=== PATIENT | male | born 1990 | race Two or more races ===

== ENCOUNTER 2021-04-24 12:56 | Emergency (ER) | payer MEDICAID ==
[~2021-04-24] VITALS: Ht 170.2 cm; Wt 88.5 kg
[2021-04-24 14:06] VITALS: BP 124/76
[2021-04-24 14:15] LABS: Basophils # (auto) 0 10 ^3/uL (0-0.2); Basophils % (auto) 0.5 % (0.0-2.0); Eosinophils # (auto) 0 10 ^3/uL (0-0.8); Eosinophils % (auto) 0.1 % (0.0-7.0); Hematocrit 42.8 % (41.0-53.0); Hemoglobin 14.5 g/dL (13.5-17.5); Lymphocytes # (auto) 3.2 10 ^3/uL (0.4-5.4); Lymphocytes % (auto) 38.6 % (10.0-50.0); Mean Corpuscular Hemoglobin 29.3 pg (28.0-32.0); Mean Corpuscular Hgb Conc. 33.9 g/dL (32.0-36.0); Mean Corpuscular Volume 86.4 fL (80.0-100.0); Monocytes # (auto) 0.4 10 ^3/uL (0-1.3); Monocytes % (auto) 4.5 % (0.0-12.0); Neutrophils # (auto) 4.7 10 ^3/uL (1.6-8.6); Neutrophils % (auto) 56.3 % (37.0-80.0); Nucleated Red Blood Cells % 0.1 %; Red Blood Cells 4.95 10^6/uL (4.5-5.90); Red Cell Distribution Width 12.9 % (11.8-14.3); White Blood Cell 8.4 10^3/uL (4.4-10.8)
[2021-04-24 14:26] LABS: BUN/Creatinine Ratio 12.2; Potassium 3.9 mmol/L (3.5-5.1)
[2021-04-24] MEDS ORDERED: METH750T22 PO (15:02)
[2021-04-24] MEDS ORDERED: IBUP800T27 PO (15:02)
== END 2021-04-24 15:07 | disposition home or self-care (01) ==
LOC: ER 12:56
DX: S86.912A Strain of unspecified muscle(s) and tendon(s) at lower leg level, left leg, initial encounter (principal); S86.911A Strain of unspecified muscle(s) and tendon(s) at lower leg level, right leg, initial encounter; E11.9 Type 2 diabetes mellitus without complications; F17.210 Nicotine dependence, cigarettes, uncomplicated; F12.10 Cannabis abuse, uncomplicated; X58.XXXA Exposure to other specified factors, initial encounter; Y93.89 Activity, other specified; Y92.89 Other specified places as the place of occurrence of the external cause; Y99.8 Other external cause status
CPT/HCPCS: 36415; 80048; 82550; 85025

== ENCOUNTER 2022-06-03 06:44 | Emergency (ER) | payer MEDICAID ==
[~2022-06-03] VITALS: Ht 170.2 cm; Wt 84.5 kg
[~2022-06-03 06:44] MED LIST: IBUP800T27 PO; METH750T22 PO
[2022-06-03] MEDS ORDERED: DexAMETHasone SOD PHOS 10MG/1ML VIAL INJ IM ONE (09:30)
[2022-06-03 13:03] VITALS: BP 118/67
[2022-06-03] MEDS ORDERED: IBUP800T26 PO (13:46)
== END 2022-06-03 13:54 | disposition home or self-care (01) ==
LOC: ER 06:44
DX: J02.0 Streptococcal pharyngitis (principal); E11.9 Type 2 diabetes mellitus without complications; F17.210 Nicotine dependence, cigarettes, uncomplicated; F12.10 Cannabis abuse, uncomplicated; Z20.822 Contact with and (suspected) exposure to COVID-19
CPT/HCPCS: 36415; 87070; 87426; 87880; 96372; 99283; J1100

== ENCOUNTER 2023-09-28 09:50 | Emergency (ER) | payer MEDICAID ==
[~2023-09-28] VITALS: Ht 170.2 cm; Wt 77.2 kg
[~2023-09-28 09:50] MED LIST changes: +IBUP-1455 PO; +IBUP-1456 PO; -IBUP800T27 PO; +METH-1182 PO; -METH750T22 PO
[2023-09-28 10:24] VITALS: PULSE 90; RESP 20; O2SAT 96
[2023-09-28 10:43] VITALS: O2SAT 95
[2023-09-28 11:45] LABS: Basophils # (auto) 0.1 10 ^3/uL (0-0.2); Basophils % (auto) 0.5 % (0.0-2.0); Eosinophils # (auto) 0 10 ^3/uL (0-0.8); Eosinophils % (auto) 0.1 % (0.0-7.0); Hematocrit 39.1 % (41.0-53.0); Hemoglobin 13.3 g/dL (13.5-17.5); Lymphocytes # (auto) 3.3 10 ^3/uL (0.4-5.4); Lymphocytes % (auto) 33.8 % (10.0-50.0); Mean Corpuscular Hemoglobin 29.5 pg (28.0-32.0); Mean Corpuscular Hgb Conc. 34.1 g/dL (32.0-36.0); Mean Corpuscular Volume 86.4 fL (80.0-100.0); Monocytes # (auto) 0.5 10 ^3/uL (0-1.3); Monocytes % (auto) 5.1 % (0.0-12.0); Neutrophils # (auto) 5.9 10 ^3/uL (1.6-8.6); Neutrophils % (auto) 60.5 % (37.0-80.0); Red Blood Cells 4.53 10^6/uL (4.5-5.90); Red Cell Distribution Width 12.7 % (11.8-14.3); White Blood Cell 9.7 10^3/uL (4.4-10.8)
[2023-09-28 11:55] LABS: Chloride 102 mmol/L (98-107); Potassium 3.9 mmol/L (3.5-5.1); Sodium 135 mmol/L (136-145)
[2023-09-28 11:56] LABS: Anion Gap 8 (5-15); Calcium 9.6 mg/dL (8.7-10.4); Carbon Dioxide 25 mmol/L (20-30)
[2023-09-28 12:01] LABS: BUN/Creatinine Ratio 12.4 (10.0-20.0); Blood Urea Nitrogen 15 mg/dL (9-23); Glucose 329 mg/dL (74-106)
[2023-09-28 12:57] VITALS: BP 99/56; PULSE 100; RESP 16
== END 2023-09-28 13:26 | disposition left against medical advice (07) ==
LOC: ER 09:50
DX: E11.65 Type 2 diabetes mellitus with hyperglycemia (principal); R42 Dizziness and giddiness; F17.210 Nicotine dependence, cigarettes, uncomplicated; F12.10 Cannabis abuse, uncomplicated
CPT/HCPCS: 36415; 80048; 82962; 85025

== ENCOUNTER 2023-11-14 16:47 | Emergency (ER) | payer MEDICAID ==
[~2023-11-14] VITALS: Ht 170.2 cm; Wt 79.7 kg
[2023-11-14 17:02] VITALS: BP 120/81; PULSE 87; RESP 17; O2SAT 99
[2023-11-14 17:39] LABS: Basophils # (auto) 0 10 ^3/uL (0-0.2); Basophils % (auto) 0.3 % (0.0-2.0); Eosinophils # (auto) 0 10 ^3/uL (0-0.8); Eosinophils % (auto) 0.3 % (0.0-7.0); Hematocrit 42.7 % (41.0-53.0); Hemoglobin 14.4 g/dL (13.5-17.5); Lymphocytes # (auto) 2.8 10 ^3/uL (0.4-5.4); Lymphocytes % (auto) 32.7 % (10.0-50.0); Mean Corpuscular Hemoglobin 30.2 pg (28.0-32.0); Mean Corpuscular Hgb Conc. 33.8 g/dL (32.0-36.0); Mean Corpuscular Volume 89.2 fL (80.0-100.0); Monocytes # (auto) 0.5 10 ^3/uL (0-1.3); Monocytes % (auto) 5.6 % (0.0-12.0); Neutrophils # (auto) 5.1 10 ^3/uL (1.6-8.6); Neutrophils % (auto) 61.1 % (37.0-80.0); Platelet Count (auto) 346 10^3/uL (140-450); Red Blood Cells 4.78 10^6/uL (4.5-5.90); Red Cell Distribution Width 13.4 % (11.8-14.3); White Blood Cell 8.4 10^3/uL (4.4-10.8)
[2023-11-14 17:49] LABS: Alanine Aminotransferase 36 U/L (7-40); Alkaline Phosphatase 99 U/L (46-116); Anion Gap 8 (5-15); Aspartate Aminotransferase 32 U/L (13-40); BUN/Creatinine Ratio 11.1 (10.0-20.0); Blood Urea Nitrogen 10 mg/dL (9-23); Carbon Dioxide 27 mmol/L (20-30); Chloride 106 mmol/L (98-107); Glucose 87 mg/dL (74-106); Lipase 25 U/L (12-53); Potassium 3.5 mmol/L (3.5-5.1); Sodium 141 mmol/L (136-145)
[2023-11-14 17:50] LABS: Bilirubin, Total 0.6 mg/dL (0.2-1.0); Total Protein 7.6 g/dL (5.7-8.2)
[2023-11-14] MEDS ORDERED: PHENSUP38 PR (19:46)
[2023-11-14 20:16] LABS: Urine Bacteria None Seen /hpf (None Seen); Urine WBC None Seen /hpf (0 - 3)
[2023-11-14 20:20] LABS: Urine Blood Negative /uL (Negative); Urine Clarity Clear (Clear); Urine Color Light-Yellow (Yellow); Urine Protein, UAD Negative (Negative); Urine Specific Gravity 1.012 (1.001-1.035); Urine Urobilinogen Normal (Negative)
== END 2023-11-14 22:37 | disposition home or self-care (01) ==
LOC: ER 16:47
DX: K64.9 Unspecified hemorrhoids (principal); F20.9 Schizophrenia, unspecified; E11.9 Type 2 diabetes mellitus without complications; F17.210 Nicotine dependence, cigarettes, uncomplicated; F15.90 Other stimulant use, unspecified, uncomplicated; Z79.899 Other long term (current) drug therapy
CPT/HCPCS: 36415; 71045; 80053; 81001; 83605; 83690; 83880; 84484; 85025

== ENCOUNTER 2024-03-21 12:38 | Inpatient (IN) | payer MEDICAID ==
[~2024-03-21] VITALS: Ht 170.2 cm; Wt 75.1 kg
[~2024-03-21 12:38] MED LIST changes: +PHENSUP38 PR
--- NOTE | 2024-03-21 12:45 | ED.PDOC ---
History of Present Illness HPI Comments 33 y/o M with PMHX of schizophrenia and DM, brought in by ambulance presents to the ED with CC of hyperglycemia. Per EMS, patient was brought in from boarding care due to non-compliance with medications. EMS states, that patient has been experiencing episodes of hyperglycemia with associated symptoms of dysuria and dry mouth. In route to ED, patient's blood sugar on the glucometer read at 496. Patient is slightly disoriented and no other history is obtainable at this time. Time Seen by MD: 12:40 Primary Care Provider: KATY Reviewed Notes: Nurses Notes, Delivery Assistant Notes, Medications, Allergies Allergies: Coded Allergies: NO KNOWN ALLERGIES (Unverified , 06/03/22) Home Meds Active Scripts Phenylephrine-Shark Liver Oil- (Hemorrhoidal Suppositorie 0.25-3-85.5 %) 1 Sup Sup, 1 SUP [place] BIDP PRN, #20 SUPP Prov:SHREYAS BUCHANAN PAC 11/14/23 Ibuprofen Micronized (Ibuprofen) 800 Mg Tab, 800 MG PO Q8HP PRN, #30 TAB Prov:SHREYAS BUCHANAN PAC 06/03/22 Methocarbamol (Methocarbamol) 750 Mg Tab, 750 MG PO BID, #20 TAB Prov:FREDRICK PORRAS PA 04/24/21 Ibuprofen (Ibuprofen) 800 Mg Tab, 800 MG PO Q8HP PRN, #30 TAB Prov:FREDRICK PORRAS PA 04/24/21 Information Source: Patient, Emergency Med Personnel Mode of Arrival: EMS Severity: Mild Timing: Days Duration: Since onset Prehospital treatment: 12 Lead EKG, Accucheck Past Medical History PAST MEDICAL HISTORY: DM, Schizophrenia Surgical History: Denies all surgeries Family History Family History: Reviewed,noncontributory to illness Social History Smoker: Cigarettes Alcohol: Occasionally Drugs: Marijuana Lives In: Home Constitutional: denies: chills, diaphoresis, fatigue, fever, malaise, sweats, weakness, others EENTM: reports: others (DRY MOUTH); denies: blurred vision, double vision, ear bleeding, ear discharge, ear drainage, ear pain, ear ringing, eye pain, eye redness, hearing loss, mouth pain, mouth swelling, nasal discharge, nose bleeding, nose congestion, nose pain, photophobia, tearing, throat pain, throat swelling, voice changes Respiratory: denies: cough, hemoptysis, orthopnea, SOB at rest, shortness of breath, SOB with excertion, stridor, wheezing, others Cardiovascular: denies: chest pain, dizzy spells, diaphoresis, Dyspnea on exertion, edema, irregular heart beat, left arm pain, lightheadedness, palpitations, PND, syncope, others Gastrointestinal: denies: abdomen distended, abdominal pain, blood streaked bowels, constipated, diarrhea, dysphagia, difficulty swallowing, hematemesis, melena, nausea, poor appetite, poor fluid intake, rectal bleeding, rectal pain, vomiting, others Genitourinary: reports: dysuria; denies: burning, flank pain, frequency, hematuria, incontinence, penile discharge, penile sore, pain, testicle pain, testicle swelling, urgency, others Neurological: denies: dizziness, fainting, headache, left sided numbness, left sided weakness, numbness, paresthesia, pre-existing deficit, right sided numbness, right sided weakness, seizure, speech problems, tingling, tremors, weakness, others Musculoskeletal: denies: back pain, gout, joint pain, joint swelling, muscle pain, muscle stiffness, neck pain, others Integumetry: denies: bruises, change in color, change in hair/nails, dryness, laceration, lesions, lumps, rash, wounds, others Allergic/Immunocompromised: denies: Difficulty Healing, Frequent Infections, Hives, Itching, others Hematologic/Lymphatic: denies: anemia, blood clots, easy bleeding, easy bruising, swollen glands, others Endocrine: denies: excessive hunger, excessive sweating, excessive thirst, excessive urination, flushing, intolerance to cold, intolerance to heat, unexplained weight gain, unexplained weight loss, others Psychiatric: denies: anxiety, bipolar disorder, depression, hopeless, panic disorder, schizophrenia, sleepless, suicidal, others All Other Systems: Reviewed and Negative Physical Exam General Appearance: Moderate Distress HEENT: Normal ENT Inspection, Pharynx Normal, TMs Normal Neck: Full Range of Motion, Non-Tender, Normal, Normal Inspection Respiratory: Chest Non-Tender, Lungs Clear, No Accessory Muscle Use, No Respiratory Distress, Normal Breath Sounds Cardiovascular: No Edema, No JVD, No Murmur, No Gallop, Normal Peripheral Pulses, Regular Rate/Rhythm Breast Exam: Deferred Gastrointestinal: No Organomegaly, Non Tender, No Pulsatile Mass, Normal Bowel Sounds, Soft Genitalia: Deferred Pelvic: Deferred Rectal: Deferred Extremities: No calf tenderness, Normal capillary refill, Normal inspection, Normal range of motion, Non-tender, No pedal edema Musculoskeletal : Apperance: Normal Neurologic: Alert, lithographic proofer II-XII nml as Tested, Motor Weakness, Normal Affect, Normal Mood, No Sensory Deficits Cerebellar Function: Normal Reflexes: Normal Skin: Dry, Normal Color, Warm Lymphatic: No Adenopathy Was a procedure done? Was a procedure done?: No Differential Dx Considerations may include: HYPERGLYCEMIA X-Ray, Labs, Meds, VS Vital Signs Date Time Temp Pulse Resp B/P (MAP) Pulse Ox O2 Delivery O2 Flow Rate FiO2 03/21/24 16:08 119 22 140/92 (108) 97 03/21/24 16:00 121 03/21/24 13:23 110 18 141/95 (110) 98 03/21/24 13:23 110 18 98 Room Air* 0 21 03/21/24 12:45 97.9 106 23 134/92 (106) 98 Lab Test 03/21/24 13:54 03/21/24 13:17 03/21/24 13:15 03/21/24 12:56 Range/Units Blood Gas Specimen Type Arterial Blood Gas Sample Site Right radial Blood Gas Patient Temperature 37.0 Arterial Blood Date Drawn [id number] Arterial Blood pH 7.143 *L 7.350-7.450 Arterial Blood Partial Pressure CO2 17.0 *L 35.0-48.0 mmHg Arterial Blood Partial Pressure O2 114.6 H 83.0-108.0 mmHg Arterial Blood HCO3 5.7 L 21.0-28.0 mmol/L Arterial Blood Oxygen Saturation 96.6 94.0-98.0 % Arterial Blood Base Excess -20.8 L -2.0-3.0 mmol/L Arterial Blood Oxyhemoglobin 95.6 94.0-98.0 % Arterial Blood Carboxyhemoglobin 0.4 L 0.5-1.5 % Arterial Blood Methemoglobin 0.6 0.0-1.5 % Morris Test Yes Blood Gas Total Hemoglobin 17.50 13.5-17.5 g/dL Blood Gas Modality Room air FiO2 % 21.0 Blood Gas Critical Value Read Back Yes Blood Gas Notified Whom Md. kath schneider Blood Gas Notified Time [id number] Blood Gas Notified By Sapphire [employer] Grinder breonna sarah Urine Color Light-yellow Yellow Urine Clarity Clear Clear Urine pH 5.0 5.0-9.0 Urine Specific [place] 1.027 1.001-1.035 Urine Protein Trace H Negative Urine Ketones 4+ H Negative Urine Blood Trace H Negative /uL Urine Nitrite Negative Negative Urine Bilirubin Negative Negative Urine Urobilinogen Normal Negative mg/dL Urine Leukocyte Esterase Negative Negative /uL Urine RBC None seen 0 - 3 /hpf Urine Microscopic WBC < 1 0-3 /HPF Urine Squamous Epithelial Cells Few <5 /hpf Urine Bacteria None seen None Seen /hpf Urine Glucose 4+ H Normal mg/dL Urine Opiates Screen Neg NEGATIVE Urine Fentanyl Screen Neg NEGATIVE Urine Barbiturates Screen Neg NEGATIVE Urine Phencyclidine Screen Neg NEGATIVE Urine Amphetamines Screen Neg NEGATIVE Urine Benzodiazepines Screen Neg NEGATIVE Urine Cocaine Screen Neg NEGATIVE Urine Cannabinoids Screen Neg NEGATIVE POC Glucose 473 *H 70-106 mg/dl White Blood Count 8.1 4.4-10.8 10^3/uL Red Blood Count 5.72 4.5-5.90 10^6/uL Hemoglobin 17.1 13.5-17.5 g/dL Hematocrit 51.7 41.0-53.0 % Mean Corpuscular Volume 90.4 80.0-100.0 fL Mean Corpuscular Hemoglobin 29.9 28.0-32.0 pg Mean Corpuscular Hemoglobin Concent 33.1 32.0-36.0 g/dL Red Cell Distribution Width 13.7 11.8-14.3 % Platelet Count 318 140-450 10^3/uL Mean Platelet Volume 8.1 6.9-10.8 fL Neutrophils (%) (Auto) 82.4 H 37.0-80.0 % Lymphocytes (%) (Auto) 11.3 10.0-50.0 % Monocytes (%) (Auto) 6.0 0.0-12.0 % Eosinophils (%) (Auto) 0.0 0.0-7.0 % Basophils (%) (Auto) 0.3 0.0-2.0 % Neutrophils # (Auto) 6.7 1.6-8.6 10 ^3/uL Lymphocytes # (Auto) 0.9 0.4-5.4 10 ^3/uL Monocytes # (Auto) 0.5 0-1.3 10 ^3/uL Eosinophils # (Auto) 0 0-0.8 10 ^3/uL Basophils # (Auto) 0 0-0.2 10 ^3/uL Nucleated Red Blood Cells 0.0 % Sodium Level 126 L 136-145 mmol/L Potassium Level 6.8 *H 3.5-5.1 mmol/L Chloride Level 92 L 98-107 mmol/L Carbon Dioxide Level 12 L 20-31 mmol/L Anion Gap 22 H 5-15 Blood Urea Nitrogen 25 H 9-23 mg/dL Creatinine 1.68 H 0.700-1.30 mg/dL Glomerular Filtration Rate Calc 55 >90 mL/min BUN/Creatinine Ratio 14.9 10.0-20.0 Serum Glucose 551 *H 74-106 mg/dL Calcium Level 11.0 H 8.7-10.4 mg/dL Beta-Hydroxybutyric Acid Pending Current Medications Medications (Trade) Dose Ordered Sig/Genoveva Route Start Time Stop Time Status Last Admin Sodium Chloride 1,000 ml @ 1,000 mls/hr Q1H ONCE IV 03/21/24 12:45 03/21/24 13:44 DC 03/21/24 13:32 Sodium Chloride 1,000 ml @ 1,000 mls/hr Q1H ONCE IV 03/21/24 13:45 03/21/24 14:44 DC 03/21/24 13:45 Insulin Human Regular (InsuLIN R) 5 units ONCE ONCE IV 03/21/24 13:45 03/21/24 13:46 DC 03/21/24 14:13 The patient was given a bolus of normal saline and then another repeat 1 L The patient was given insulin 5 units IV push secondary to the Accu-Chek being 951 The patient was potassium is 6.8 The board is 92 The patient's sodium level is 126 This is indicates some severe dehydration. The CBC is within normal limits The urine tox is negative We did an ABG which shows a pH of 7.14/pCO2 of 17 The CO2 level is 12 in the anion gap is increased to 22 The patient has been started on an insulin drip after the insulin was given The patient will be admitted to the ICU Images Reviewed?: Images reviewed and evaluated by me Time of 1ST Reevaluation: 13:20 Reevaluation 1ST: Unchanged Patient Education/Counseling: Diagnosis, Treatment, Prognosis Family Education/Counseling: No Family Present Departure 1 Departure Time of Disposition: 17:08 Impression: Primary Impression: Amphetamine use Additional Impression: Diabetic ketoacidosis Qualified Codes: E13.10 - Other specified diabetes mellitus with ketoaci dosis without coma Disposition: ADMITTED INPATIENT Admit to: ICU Condition: Guarded Critical Care Note Critical Care Time?: Yes (35 min-critical care time only) Stability Stability form required: Yes Unstable for transfer: ICU, CCU, PCU, KD (Intensive VS monitoring), ED Physician Assesment (Clinical assesment) Heart Score Heart Score: Heart Score Response (Comments) Value History N/A 0 EKG N/A 0 Age N/A 0 Risk Factors N/A 0 Troponin N/A 0 Total 0 I personally scribed for ML SCHNEIDER MD ([email or web address]) on 03/21/24 at 12:45. Beverley ctronically submitted by Meeta Harper ([email or web address]). I personally scribed for ML SCHNEIDER MD ([email or web address]) on 03/21/24 at 12:52. Elect ronically submitted by Meeta Harper ([email or web address]). ML SCHNEIDER MD Mar 21, 2024 12:45
[2024-03-21 13:14] LABS: Basophils # (auto) 0 10 ^3/uL (0-0.2); Basophils % (auto) 0.3 % (0.0-2.0); Eosinophils # (auto) 0 10 ^3/uL (0-0.8); Hematocrit 51.7 % (41.0-53.0); Hemoglobin 17.1 g/dL (13.5-17.5); Lymphocytes # (auto) 0.9 10 ^3/uL (0.4-5.4); Lymphocytes % (auto) 11.3 % (10.0-50.0); Mean Corpuscular Hemoglobin 29.9 pg (28.0-32.0); Mean Corpuscular Hgb Conc. 33.1 g/dL (32.0-36.0); Mean Corpuscular Volume 90.4 fL (80.0-100.0); Monocytes # (auto) 0.5 10 ^3/uL (0-1.3); Neutrophils # (auto) 6.7 10 ^3/uL (1.6-8.6); Neutrophils % (auto) 82.4 % (37.0-80.0); Platelet Count (auto) 318 10^3/uL (140-450); Red Blood Cells 5.72 10^6/uL (4.5-5.90); Red Cell Distribution Width 13.7 % (11.8-14.3); White Blood Cell 8.1 10^3/uL (4.4-10.8)
[2024-03-21 13:21] LABS: Anion Gap 22 (5-15)
[2024-03-21 13:23] VITALS: PULSE 110; RESP 18; O2SAT 98
[2024-03-21 13:26] LABS: BUN/Creatinine Ratio 14.9 (10.0-20.0)
[2024-03-21 13:31] LABS: Urine Bacteria None Seen /hpf (None Seen)
[2024-03-21] MEDS: SODIUM CHLORIDE 0.9% 1,000 ML IV ONE ×3 (13:32→21:10)
[2024-03-21 13:37] LABS: Blood Urea Nitrogen 25 mg/dL (9-23); Carbon Dioxide 12 mmol/L (20-31); Chloride 92 mmol/L (98-107); Sodium 126 mmol/L (136-145)
[2024-03-21 13:38] LABS: Glucose 551 mg/dL (74-106); Potassium 6.8 mmol/L (3.5-5.1)
[2024-03-21] MEDS: HYDROcodone-ACET 5/325MG TAB PO ONE (13:45)
[2024-03-21 13:51] LABS: Urine Blood TRACE /uL (Negative); Urine Clarity Clear (Clear); Urine Color Light-Yellow (Yellow); Urine Protein, UAD TRACE (Negative); Urine Specific Gravity 1.027 (1.001-1.035); Urine Squamous Epithelial Cell FEW /hpf (<5); Urine Urobilinogen Normal (Negative); Urine WBC < 1 /HPF (0-3)
[2024-03-21 13:55] LABS: Amphetamine Screen, Urine Neg (NEGATIVE); Barbiturate Scree,Urine Neg (NEGATIVE); Benzodiazephine Screen, Urine Neg (NEGATIVE); Cannabinoid Screen, Urine Neg (NEGATIVE); Cocaine Screen, Urine Neg (NEGATIVE); Opiate Scree,Urine Neg (NEGATIVE); Phencyclidine Screen, Urine Neg (NEGATIVE)
[2024-03-21 14:03] LABS: Base Excess -20.8 mmol/L (-2.0-3.0)
[2024-03-21] MEDS: InsuLIN REG 1unit/0.01ml Soln (100units/ml) IV ONE (14:13)
[2024-03-21] MEDS: LIDOCAINE 2% JELLY 11ml (GLYDO) UR ONE (16:30)
[2024-03-21] MEDS ORDERED: DEXTROSE (50%) 50ML SYRG IV PRN ×2 (17:15→19:00)
[2024-03-21] MEDS: INSULIN LANTUS (GLARGINE) 1 /0.01ml (100units/ml) SC ONE (17:57)
[2024-03-21] MEDS: ACCU-CHEK COMFORT CURVE STRIP VI SCH ×2 (17:59→19:36)
[2024-03-21] MEDS: INSULIN DRIP 100 UNIT/100ML 100 ML IV SCH ×2 (17:59→19:35)
[2024-03-21] MEDS ORDERED: MORPHINE SULFATE INJ 2 MG/ml SYRG IV PRN (19:00)
[2024-03-21] MEDS ORDERED: NITROGLYCERIN 0.4 MG SL TAB SL PRN (19:00)
[2024-03-21 19:30] VITALS: PULSE 127; RESP 23; O2SAT 99
[2024-03-21 20:10] LABS: Anion Gap 22.00001 (5-15)
[2024-03-21 20:15] LABS: Blood Urea Nitrogen 22 mg/dL (9-23)
[2024-03-21 20:35] LABS: Calcium 10.5 mg/dL (8.7-10.4); Carbon Dioxide < 10 mmol/L (20-31); Chloride 96 mmol/L (98-107); Glucose 469 mg/dL (74-106); Sodium 128 mmol/L (136-145)
[2024-03-21] MEDS: SODIUM ZIRCONIUM CYCL 10 GM PAK PO ONE (21:06)
[2024-03-21] MEDS: SODIUM BICARB 8.4% 50Meq/50ml SYR Vial IV ONE (21:10)
[2024-03-21] MEDS: CALCIUM GLUC 1,000mg/50ml-NS 50 ML IV ONE (21:24)
[2024-03-21] MEDS: ALBUTEROL SULF 2.5 MG/0.5ML(0.5%) NEB SOLN NEB ONE (21:30)
[2024-03-21 21:40] LABS: Base Excess -18.7 mmol/L (-2.0-3.0)
[2024-03-22] MEDS: InsuLIN REG 1unit/0.01ml Soln (100units/ml) IV ONE (00:17)
[2024-03-22] MEDS: ONDANSETRON HCL 4 MG/2 ML VIAL IV PRN (00:18)
[2024-03-22 01:05] LABS: Chloride 102 mmol/L (98-107); Potassium 4.2 mmol/L (3.5-5.1); Sodium 137 mmol/L (136-145)
[2024-03-22 01:06] LABS: Anion Gap 24 (5-15); Calcium 9.8 mg/dL (8.7-10.4)
--- NOTE | 2024-03-22 01:09 | DVHHP2 ---
History of Present Illness Reason for Visit: Hyperglycemia History of Present Illness 33-year-old male presents for evaluation of hyperglycemia. Patient brought in from [facility] after noting his blood sugars being elevated. It was reported the patient being noncompliant with his insulin regimen. Patient is currently complaining of nausea and dry mouth. Denies chest pain or shortness for breath. No other acute complaints reported. Past Medical History Schizophrenia and diabetes mellitus Past Surgical History Denies Family History Noncontributory Smoke: <1 pack per day ALCOHOL: occassional Drugs: Marijuana Lives: Other Review of Systems Review of Systems Review of systems are currently negative otherwise addressed in HPI. Allergies: Coded Allergies: NO KNOWN ALLERGIES (Unverified , 06/03/22) Medications Current Medications Medications Dose Ordered Sig/Genoveva Route Start Time Stop Time Status Last Admin Dose Admin Insulin Glargine 15 units DAILY SC 03/22/24 10:00 Sodium Chloride 1,000 ml @ 150 mls/hr Q6H40M IV 03/22/24 01:00 Insulin Human (Reg)/Sodium Chloride 100 ml @ 0.5 mls/hr Q24H IV 03/21/24 19:00 03/21/24 19:35 6 MLS/HR Dextrose 50 ml UD PRN IV 03/21/24 19:00 Diagnostic Test (Pha) 1 strip Q90MIN 03/21/24 19:30 03/21/24 23:53 1 STRIP Ondansetron HCl 4 mg Q4HP PRN IV 03/21/24 19:00 03/22/24 00:18 4 MG Nitroglycerin 0.4 mg Q5MINP PRN SL 03/21/24 19:00 Morphine Sulfate 2 mg Q30M PRN IV 03/21/24 19:00 Exam Vital Signs Vital Signs Date Time Temp Pulse Resp B/P (MAP) Pulse Ox O2 Delivery O2 Flow Rate FiO2 03/22/24 00:00 99.8 127 24 147/89 (108) 98 99.8 03/21/24 21:28 Room Air* 0 21 Exam Gen: 33-year-old male in mild distress Skin: Warm, dry, normal color and texture, no rash. HEENT: Normocephalic atraumatic, mucous membranes moist and pink. Neck: Cervical and supraclavicular nodes normal without enlargement, trachea is midline, thyroid gland is normal without masses. Pulmonary: Clear to auscultation and percussion bilaterally. Cardiac: Sinus tachycardia Abdomen: Soft, nontender, nondistended, bowel sounds present all 4 quadrants, no guarding, no rigidity, no organomegaly. Extremities: No cyanosis, clubbing, no edema Neuro: Cranial nerves II through XII grossly intact, normal affect and speech, no focal motor deficits. Labs/Xrays Labs Test 03/22/24 00:33 03/21/24 23:54 03/21/24 21:23 03/21/24 19:38 Range/Units POC Glucose 366 H 70-106 mg/dl Blood Gas Specimen Type Arterial Blood Gas Sample Site Left radial Blood Gas Patient Temperature 37.0 Arterial Blood Date Drawn Arterial Blood pH 7.212 *L 7.350-7.450 Arterial Blood Partial Pressure CO2 15.7 *L 35.0-48.0 mmHg Arterial Blood Partial Pressure O2 108.4 H 83.0-108.0 mmHg Arterial Blood HCO3 6.2 L 21.0-28.0 mmol/L Arterial Blood Oxygen Saturation 97.4 94.0-98.0 % Arterial Blood Base Excess -18.7 L -2.0-3.0 mmol/L Arterial Blood Oxyhemoglobin 96.7 94.0-98.0 % Arterial Blood Carboxyhemoglobin 0.1 L 0.5-1.5 % Arterial Blood Methemoglobin 0.6 0.0-1.5 % Morris Test Yes Blood Gas Total Hemoglobin 17.50 13.5-17.5 g/dL Blood Gas Modality Room air Blood Gas Spontaneous Rate 21 FiO2 % 21.0 Blood Gas Critical Value Read Back yes Blood Gas Notified Whom huber callejas Blood Gas Notified Time [id number] Blood Gas Notified By data processing systems consultant rishabh ballard Serum Osmolality 325 H 278-298 mOsm/kg Test 03/21/24 13:17 03/21/24 12:56 Range/Units Urine Color Light-yellow Yellow Urine Clarity Clear Clear Urine pH 5.0 5.0-9.0 Urine Specific [place] 1.027 1.001-1.035 Urine Protein Trace H Negative Urine Ketones 4+ H Negative Urine Blood Trace H Negative /uL Urine Nitrite Negative Negative Urine Bilirubin Negative Negative Urine Urobilinogen Normal Negative mg/dL Urine Leukocyte Esterase Negative Negative /uL Urine RBC None seen 0 - 3 /hpf Urine Microscopic WBC < 1 0-3 /HPF Urine Squamous Epithelial Cells Few <5 /hpf Urine Bacteria None seen None Seen /hpf Urine Glucose 4+ H Normal mg/dL Urine Opiates Screen Neg NEGATIVE Urine Fentanyl Screen Neg NEGATIVE Urine Barbiturates Screen Neg NEGATIVE Urine Phencyclidine Screen Neg NEGATIVE Urine Amphetamines Screen Neg NEGATIVE Urine Benzodiazepines Screen Neg NEGATIVE Urine Cocaine Screen Neg NEGATIVE Urine Cannabinoids Screen Neg NEGATIVE White Blood Count 8.1 4.4-10.8 10^3/uL Red Blood Count 5.72 4.5-5.90 10^6/uL Hemoglobin 17.1 13.5-17.5 g/dL Hematocrit 51.7 41.0-53.0 % Mean Corpuscular Volume 90.4 80.0-100.0 fL Mean Corpuscular Hemoglobin 29.9 28.0-32.0 pg Mean Corpuscular Hemoglobin Concent 33.1 32.0-36.0 g/dL Red Cell Distribution Width 13.7 11.8-14.3 % Platelet Count 318 140-450 10^3/uL Mean Platelet Volume 8.1 6.9-10.8 fL Neutrophils (%) (Auto) 82.4 H 37.0-80.0 % Lymphocytes (%) (Auto) 11.3 10.0-50.0 % Monocytes (%) (Auto) 6.0 0.0-12.0 % Eosinophils (%) (Auto) 0.0 0.0-7.0 % Basophils (%) (Auto) 0.3 0.0-2.0 % Neutrophils # (Auto) 6.7 1.6-8.6 10 ^3/uL Lymphocytes # (Auto) 0.9 0.4-5.4 10 ^3/uL Monocytes # (Auto) 0.5 0-1.3 10 ^3/uL Eosinophils # (Auto) 0 0-0.8 10 ^3/uL Basophils # (Auto) 0 0-0.2 10 ^3/uL Nucleated Red Blood Cells 0.0 % Beta-Hydroxybutyric Acid > 4.500 H < 0.4 mmol/L Assessment/Plan Assessment/Plan Assessment Diabetic ketoacidosis Noncompliant Acute kidney injury Plan Admit the patient to ICU to the hospitalist DKA protocol Monitor kidney function Continue treatment per orders Total critical care time excluding procedures performed this 50 minutes. Plan discussed with: Patient My Orders Orders - NIC CALLEJAS Procedure Category Date Status Time Sodium Chloride 0.9% PHA 03/22/24 In Process 01:00 Insulin Drip 100 PHA 03/21/24 In Process Unit/100ml (Myxredlin 19:00 Dextrose 50% Syringe PHA 03/21/24 In Process 19:00 Glucose Blood PHA 03/21/24 In Process (Accu-Chek Comfort 19:30 Basic Metabolic Panel LAB 03/22/24 In Process 00:55 Basic Metabolic Panel LAB 03/22/24 Logged 06:55 Neurological NICK 03/21/24 In Process Assessment 18:55 Vs/Hemodynamics NICK 03/21/24 In Process 18:55 Admit ADMIT 03/21/24 Transmitted 18:55 Ondansetron Hcl PHA 03/21/24 In Process (Zofran) 19:00 Complete Blood Count LAB 03/22/24 Logged 04:00 Comprehensive LAB 03/22/24 Logged Metabolic Panel 04:00 Npo (Nothing By DIET 03/22/24 Transmitted Mouth) Diet Breakfast Condition: Critical NICK 03/21/24 In Process 18:55 Bedrest With Bathroom NICK 03/21/24 In Process Privileg 18:55 Nitroglycerin PHA 03/21/24 In Process Sublingual (Ntrostat 19:00 Morphine Sulfate PHA 03/21/24 In Process Injection 19:00 Stat Ekg For Chest NICK 03/21/24 In Process Pain 18:55 Notify Of Changes NICK 03/21/24 In Process From Base 18:55 Maintenance Specialist For NCIK 03/21/24 In Process 24 Hours 18:55 Emergency Dysrhythmia NICK 03/21/24 In Process Protocol 18:55 Rhythm Strips Once NICK 03/21/24 In Process Every Shift 18:55 Oxygen By Nasal RT 03/21/24 Transmitted Cannula 18:55 Abg W/ Co-Ox RT 03/21/24 Logged 20:54 Date of Service: Mar 21, 2024 Billing Provider: NIC CALLEJAS Common Visit Codes: [id number] CARE 30-74 MIN NIC CALLEJAS Mar 22, 2024 01:09
[2024-03-22 01:11] LABS: BUN/Creatinine Ratio 12.6 (10.0-20.0); Blood Urea Nitrogen 21 mg/dL (9-23)
[2024-03-22 01:18] LABS: Carbon Dioxide 11 mmol/L (20-31); Glucose 339 mg/dL (74-106)
[2024-03-22] MEDS: SODIUM CHLORIDE 0.9% 1,000 ML IV SCH ×2 (01:23→16:46)
[2024-03-22] MEDS: SODIUM CHLORIDE 0.9% 1,000 ML IV ONE (02:14)
[2024-03-22 07:25] LABS: Alanine Aminotransferase 31 U/L (7-40); Albumin 4.3 g/dL (3.2-4.8); Alkaline Phosphatase 94 U/L (46-116); Anion Gap 12 (5-15); Aspartate Aminotransferase 21 U/L (13-40); BUN/Creatinine Ratio 11.6 (10.0-20.0); Blood Urea Nitrogen 15 mg/dL (9-23); Chloride 106 mmol/L (98-107); Potassium 4.1 mmol/L (3.5-5.1)
[2024-03-22 07:26] LABS: Bilirubin, Total 0.5 mg/dL (0.2-1.0); Total Protein 6.8 g/dL (5.7-8.2)
[2024-03-22 07:27] LABS: Basophils # (auto) 0 10 ^3/uL (0-0.2); Basophils % (auto) 0.2 % (0.0-2.0); Carbon Dioxide 18 mmol/L (20-31); Eosinophils # (auto) 0 10 ^3/uL (0-0.8); Glucose 231 mg/dL (74-106); Hematocrit 41.9 % (41.0-53.0); Hemoglobin 14.6 g/dL (13.5-17.5); Lymphocytes # (auto) 1.8 10 ^3/uL (0.4-5.4); Lymphocytes % (auto) 17.7 % (10.0-50.0); Mean Corpuscular Hgb Conc. 34.9 g/dL (32.0-36.0); Monocytes # (auto) 0.9 10 ^3/uL (0-1.3); Monocytes % (auto) 9.4 % (0.0-12.0); Neutrophils # (auto) 7.2 10 ^3/uL (1.6-8.6); Neutrophils % (auto) 72.7 % (37.0-80.0); Platelet Count (auto) 311 10^3/uL (140-450); Red Blood Cells 4.88 10^6/uL (4.5-5.90); Red Cell Distribution Width 13.2 % (11.8-14.3); Sodium 136 mmol/L (136-145); White Blood Cell 9.9 10^3/uL (4.4-10.8)
[2024-03-22 07:30] VITALS: PULSE 96; RESP 17; O2SAT 98
[2024-03-22] MEDS ORDERED: DEXTROSE (50%) 50ML SYRG IV ONE (08:30)
[2024-03-22] MEDS ORDERED: ACCU-CHEK COMFORT CURVE STRIP VI ONE (08:30)
[2024-03-22] MEDS ORDERED: InsuLIN REG 1unit/0.01ml Soln (100units/ml) SC ONE (08:30)
[2024-03-22] MEDS ORDERED: DEXTROSE (50%) 50ML SYRG IV PRN (08:45)
[2024-03-22] MEDS: INSULIN LANTUS (GLARGINE) 1 /0.01ml (100units/ml) SC SCH (11:14)
[2024-03-22] MEDS: ACCU-CHEK COMFORT CURVE STRIP VI SCH (12:04)
[2024-03-22] MEDS: InsuLIN REG 1unit/0.01ml Soln (100units/ml) SC SCH ×2 (12:05→21:13)
[2024-03-22 13:37] LABS: Chloride 105 mmol/L (98-107); Potassium 4.3 mmol/L (3.5-5.1); Sodium 137 mmol/L (136-145)
[2024-03-22 13:38] LABS: Anion Gap 12 (5-15); Calcium 9.8 mg/dL (8.7-10.4); Carbon Dioxide 20 mmol/L (20-31)
[2024-03-22 13:43] LABS: BUN/Creatinine Ratio 12.5 (10.0-20.0); Blood Urea Nitrogen 16 mg/dL (9-23); Glucose 291 mg/dL (74-106)
--- NOTE | 2024-03-22 14:11 | DVHPN2 ---
Subjective Denies any symptoms Reviewed: Care Plan, H&P, Medications, Previous Orders Changes from previous H/P or p: No Changes General: Per HPI Objective Vitals Vital Signs Date Time Temp Pulse Resp B/P (MAP) Pulse Ox O2 Delivery O2 Flow Rate FiO2 03/22/24 11:00 86 16 119/75 (90) 98 03/22/24 10:00 98.0 98.0 03/22/24 07:30 Room Air* 0 21 Intake/Output Intake and Output 03/22/24 07:00 Intake Total 2959 ml Output Total 1000 ml Balance 1959 ml Intake IV Total 2959 ml Output Urine Total 1000 ml General Appearance: Alert, Oriented X3, Cooperative, No acute distress HEENT: Atraumatic, PERRLA Lungs: Clear to auscultation, Normal air movement Cardiovascular: Normal S1, Normal S2 Musculoskeletal: Normal sensory function, Normal motor function Neuro: Normal gait, Normal speech Psych/Mental Status: Mental status NL, Mood NL Medications Current Medications Medications Dose Ordered Sig/Genoveva Route Start Time Stop Time Status Last Admin Dose Admin Insulin Glargine 15 units DAILY SC 03/22/24 10:00 03/22/24 11:14 15 UNITS Sodium Chloride 1,000 ml @ 150 mls/hr Q6H40M IV 03/22/24 01:00 03/22/24 09:00 150 MLS/HR Ondansetron HCl 4 mg Q4HP PRN IV 03/21/24 19:00 03/22/24 00:18 4 MG Nitroglycerin 0.4 mg Q5MINP PRN SL 03/21/24 19:00 Morphine Sulfate 2 mg Q30M PRN IV 03/21/24 19:00 Diagnostic Test (Pha) 1 strip ACHS 03/22/24 11:30 03/22/24 12:04 1 STRIP Insulin Human Regular HS SC 03/22/24 22:00 Insulin Human Regular AC SC 03/22/24 11:30 03/22/24 12:05 9 UNITS Dextrose 50 ml UD PRN IV 03/22/24 08:45 Laboratory Results Laboratory Tests 03/22/24 06:48 03/22/24 12:57 Chemistry Test 03/21/24 19:38 03/22/24 00:33 03/22/24 06:48 03/22/24 12:57 Calcium Level 10.5 mg/dL (8.7-10.4) H 9.8 mg/dL (8.7-10.4) 9.0 mg/dL (8.7-10.4) 9.8 mg/dL (8.7-10.4) Albumin 4.3 g/dL (3.2-4.8) Total Protein 6.8 g/dL (5.7-8.2) LFT Test 03/22/24 06:48 Alanine Aminotransferase (ALT) 31 U/L (7-40) Alkaline Phosphatase 94 U/L (46-116) Aspartate Amino Transferase (AST) 21 U/L (13-40) Total Bilirubin 0.5 mg/dL (0.2-1.0) HgA1c, TSH Test 03/22/24 06:48 Hemoglobin A1c 10.0 % A1C (<5.7) H Urinalysis Test 03/21/24 13:17 Urine Color Light-yellow (Yellow) Urine Clarity Clear (Clear) Urine pH 5.0 (5.0-9.0) Urine Specific [place] 1.027 (1.001-1.035) Urine Protein Trace (Negative) H Urine Ketones 4+ (Negative) H Urine Blood Trace /uL (Negative) H Urine Nitrite Negative (Negative) Urine Bilirubin Negative (Negative) Urine Urobilinogen Normal mg/dL (Negative) Urine Leukocyte Esterase Negative /uL (Negative) Urine RBC None seen /hpf (0 - 3) Urine Microscopic WBC < 1 /HPF (0-3) Urine Squamous Epithelial Cells Few /hpf (<5) Urine Bacteria None seen /hpf (None Seen) Urine Glucose 4+ mg/dL (Normal) H Blood Gas Results Test 03/21/24 21:23 Arterial Blood pH 7.212 (7.350-7.450) FiO2 % 21.0 Labs and/or images reviewed: Labs reviewed by me, Image(s) reviewed by me Assessment/Plan Assessment/Plan Impression: -diabetic ketoacidosis -medication noncompliance -diabetes mellitus -electrolyte imbalance -Acute kidney injury, vasomotor nephropathy Plan: -patient was blood sugars have improved. Patient was now out of acidosis. -transferred to Medical/Surgical unit -continue IV hydration -electrolyte replete -social service consultation for discharge planning -re-evaluate for discharge in a.m. Total time spent with patient discussing and formulating plan of care: 35 minutes. This medical document was created using an electronic medical record system with imbookin ([employer]) dictation system. Although this document has been carefully reviewed, there may still be some phonetic and typographical errors. These areas are purely typographical due to imperfections of the software programs, and do not reflect any compromise in the patient's medical care. Plan discussed with: Patient, Other (RN) My Orders Orders - SHYAM FLOWERS NP Procedure Category Date Status Time Sodium Chloride 0.9% PHA 03/22/24 Verified 14:15 Insulin Lantus PHA 03/23/24 Verified (Glargine) (Lantus) 10:00 Basic Metabolic Panel LAB 03/23/24 Verified 04:00 Date of Service: Mar 22, 2024 Billing Provider: SHYAM FLOWERS NP Common Visit Codes: [id number] INP/OBS CARE(HIGH) SHYAM FLOWERS NP Mar 22, 2024 14:11
[2024-03-22 18:12] VITALS: PULSE 94; RESP 18
[2024-03-22 20:00] VITALS: PULSE 74; RESP 18; O2SAT 97
[2024-03-23 05:00] VITALS: BP 123/74; PULSE 75; RESP 18; TEMP 98; O2SAT 98
[2024-03-23 06:12] LABS: Chloride 103 mmol/L (98-107); Potassium 3.8 mmol/L (3.5-5.1)
[2024-03-23 06:13] LABS: Anion Gap 7 (5-15); Carbon Dioxide 22 mmol/L (20-31)
[2024-03-23 06:19] LABS: Calcium 8.6 mg/dL (8.7-10.4); Glucose 335 mg/dL (74-106); Sodium 132 mmol/L (136-145)
[2024-03-23 06:25] LABS: BUN/Creatinine Ratio 16.8 (10.0-20.0); Blood Urea Nitrogen 16 mg/dL (9-23)
[2024-03-23 09:00] VITALS: BP 142/85; PULSE 83; RESP 19; TEMP 98.7; O2SAT 98
[2024-03-23] MEDS: INSULIN LANTUS (GLARGINE) 1 /0.01ml (100units/ml) SC SCH (10:38)
[2024-03-23 13:00] VITALS: BP 127/80; PULSE 70; RESP 19; TEMP 98.7; O2SAT 98
[2024-03-23] MEDS ORDERED: DEXTROSE (50%) 50ML SYRG IV PRN (13:30)
--- NOTE | 2024-03-23 14:27 | DVHDS2 ---
Discharge Summary Date of Admission Mar 21, 2024 at 18:55 Date of Discharge: Mar 23, 2024 Admitting Diagnosis Diabetic ketoacidosis Labs/Diagnostic Data: Laboratory Results Test 03/23/24 05:48 03/23/24 05:44 03/22/24 06:48 03/21/24 21:23 POC Glucose 330 mg/dl (70-106) Sodium Level 132 mmol/L (136-145) Potassium Level 3.8 mmol/L (3.5-5.1) Chloride Level 103 mmol/L (98-107) Carbon Dioxide Level 22 mmol/L (20-31) Anion Gap 7 (5-15) Blood Urea Nitrogen 16 mg/dL (9-23) Creatinine 0.95 mg/dL (0.700-1.30) Glomerular Filtration Rate Calc 110 mL/min (>90) BUN/Creatinine Ratio 16.8 (10.0-20.0) Serum Glucose 335 mg/dL (74-106) Calcium Level 8.6 mg/dL (8.7-10.4) White Blood Count 9.9 10^3/uL (4.4-10.8) Red Blood Count 4.88 10^6/uL (4.5-5.90) Hemoglobin 14.6 g/dL (13.5-17.5) Hematocrit 41.9 % (41.0-53.0) Mean Corpuscular Volume 86.0 fL (80.0-100.0) Mean Corpuscular Hemoglobin 30.0 pg (28.0-32.0) Mean Corpuscular Hemoglobin Concent 34.9 g/dL (32.0-36.0) Red Cell Distribution Width 13.2 % (11.8-14.3) Platelet Count 311 10^3/uL (140-450) Mean Platelet Volume 7.3 fL (6.9-10.8) Neutrophils (%) (Auto) 72.7 % (37.0-80.0) Lymphocytes (%) (Auto) 17.7 % (10.0-50.0) Monocytes (%) (Auto) 9.4 % (0.0-12.0) Eosinophils (%) (Auto) 0.0 % (0.0-7.0) Basophils (%) (Auto) 0.2 % (0.0-2.0) Neutrophils # (Auto) 7.2 10 ^3/uL (1.6-8.6) Lymphocytes # (Auto) 1.8 10 ^3/uL (0.4-5.4) Monocytes # (Auto) 0.9 10 ^3/uL (0-1.3) Eosinophils # (Auto) 0 10 ^3/uL (0-0.8) Basophils # (Auto) 0 10 ^3/uL (0-0.2) Nucleated Red Blood Cells 0.0 % Hemoglobin A1c 10.0 % A1C (<5.7) Total Bilirubin 0.5 mg/dL (0.2-1.0) Aspartate Amino Transferase (AST) 21 U/L (13-40) Alanine Aminotransferase (ALT) 31 U/L (7-40) Alkaline Phosphatase 94 U/L (46-116) Total Protein 6.8 g/dL (5.7-8.2) Albumin 4.3 g/dL (3.2-4.8) Blood Gas Specimen Type Arterial Blood Gas Sample Site Left radial Blood Gas Patient Temperature 37.0 Arterial Blood Date Drawn [id number] Arterial Blood pH 7.212 (7.350-7.450) Arterial Blood Partial Pressure CO2 15.7 mmHg (35.0-48.0) Arterial Blood Partial Pressure O2 108.4 mmHg (83.0-108.0) Arterial Blood HCO3 6.2 mmol/L (21.0-28.0) Arterial Blood Oxygen Saturation 97.4 % (94.0-98.0) Arterial Blood Base Excess -18.7 mmol/L (-2.0-3.0) Arterial Blood Oxyhemoglobin 96.7 % (94.0-98.0) Arterial Blood Carboxyhemoglobin 0.1 % (0.5-1.5) Arterial Blood Methemoglobin 0.6 % (0.0-1.5) Morris Test Yes Blood Gas Total Hemoglobin 17.50 g/dL (13.5-17.5) Blood Gas Modality Room air Blood Gas Spontaneous Rate 21 FiO2 % 21.0 Blood Gas Critical Value Read Back yes Blood Gas Notified Whom huber chaudhry Blood Gas Notified Time [id number] Blood Gas Notified By lester Batista 03/21/24 19:38 03/21/24 13:17 03/21/24 12:56 Serum Osmolality 325 mOsm/kg (278-298) Urine Color Light-yellow (Yellow) Urine Clarity Clear (Clear) Urine pH 5.0 (5.0-9.0) Urine Specific [place] 1.027 (1.001-1.035) Urine Protein Trace (Negative) Urine Ketones 4+ (Negative) Urine Blood Trace /uL (Negative) Urine Nitrite Negative (Negative) Urine Bilirubin Negative (Negative) Urine Urobilinogen Normal mg/dL (Negative) Urine Leukocyte Esterase Negative /uL (Negative) Urine RBC None seen /hpf (0 - 3) Urine Microscopic WBC < 1 /HPF (0-3) Urine Squamous Epithelial Cells Few /hpf (<5) Urine Bacteria None seen /hpf (None Seen) Urine Glucose 4+ mg/dL (Normal) Urine Opiates Screen Neg (NEGATIVE) Urine Fentanyl Screen Neg (NEGATIVE) Urine Barbiturates Screen Neg (NEGATIVE) Urine Phencyclidine Screen Neg (NEGATIVE) Urine Amphetamines Screen Neg (NEGATIVE) Urine Benzodiazepines Screen Neg (NEGATIVE) Urine Cocaine Screen Neg (NEGATIVE) Urine Cannabinoids Screen Neg (NEGATIVE) Beta-Hydroxybutyric Acid > 4.500 mmol/L (< 0.4) Other Laboratory Tests 03/23/24 05:44 03/22/24 06:48 Brief Hx & Hospital Course: History of Present Illness 33-year-old male presents for evaluation of hyperglycemia. Patient brought in from [facility] after noting his blood sugars being elevated. It was reported the patient being noncompliant with his insulin regimen. Patient is currently complaining of nausea and dry mouth. Denies chest pain or shortness for breath. No other acute complaints reported. Course of hospitalization: Patient was started on insulin drip, titrated to long-acting insulin and regular insulin sliding scale. Patient was given aggressive IV hydration. He was tolerating p.o. intake. Electrolytes repleted. Discussion was made with the patient regarding his home antidiabetic medication regimen, for which he states he has adequate medications at this time. He states that his blood sugar increase because he change his dietary habits. Patient was requesting to be discharged home. He will continue his home medications. He will follow up with the discharge Clinic in one week. Physical examination General: Alert and Oriented x3. No acute distress. Well-nourished. Eyes: EOMI. Anicteric. HENT: Moist mucous membranes. Lungs: Clear to auscultation bilaterally. No accessory muscle use. Cardiovascular: Regular rate and rhythm. No murmur. No JVD. Abdomen: Soft, non-tender and non-distended. No palpable masses. Extremities: No edema. Non-tender. Skin: No rashes or lesions. Warm. Neurologic: No focal neurological deficits. CN II-XII grossly intact, but not individually tested. Psychiatric: Cooperative. Appropriate mood and affect. Total time spent with patient discussing and formulating plan of care: 35 minutes. This medical document was created using an electronic medical record system with [employer] dictation system. Although this document has been carefully reviewed, there may still be some phonetic and typographical errors. These areas are purely typographical due to imperfections of the software programs, and do not reflect any compromise in the patient's medical care. Condition at Discharge: Fair Final Diagnosis/Problems List DKA Secondary Diagnosis: -diabetic ketoacidosis -medication noncompliance -diabetes mellitus -electrolyte imbalance -Acute kidney injury, vasomotor nephropathy Discharge Disposition: Home Discharge Instruct/Medications Diet: Consistent carbohydrate Activity: No Restrictions, As Tolerated Follow Up/Referral: DC clinic in 1 week Medications: Continue all home medications 36 Discharge Statement: "Patient was advised to return to the ER or call 911 if any headaches, dizziness, shortness of breath, chest pain, abdominal pain, bleeding, fevers, or worsening of medical condition. Patient was counseled about treatment plan, medications, possible side effects, patientverbalized understanding. All questions were answered to the best of my ability. This discharge took greater then 30 minutes in planning, reviewing documentation, counseling the patient, and discussing with other team members." ASSESSMENT ASSESSMENT Assessment DKA Date of Service: Mar 23, 2024 Billing Provider: SHYAM FLOWERS NP Common Visit Codes: 78935-RLH/OBS DISCH DAY >30min SHYAM FLOWERS NP Mar 23, 2024 14:27
[2024-03-23] MEDS: ACCU-CHEK COMFORT CURVE STRIP VI SCH (15:00)
[2024-03-23] MEDS: InsuLIN REG 1unit/0.01ml Soln (100units/ml) SC SCH (15:01)
[2024-03-23 15:57] VITALS: BP 123/84; PULSE 83; RESP 19; TEMP 37.1; O2SAT 94
[2024-03-23 16:51] VITALS: BP 123/84; PULSE 80; RESP 19; TEMP 98; O2SAT 94
== END 2024-03-23 17:10 | disposition home or self-care (01) | DRG 420 ==
LOC: ER 12:38 → EDBD 12:38 → OVERFLOW 18:55 → TELE 23:49 → TELE-WESTW 03-22 18:11 → WEST WING 03-23 00:04
PROVIDERS: ADMIT Nurse Practitioner Acute Care; ATTEND Nurse Practitioner Acute Care
DX: E11.10 Type 2 diabetes mellitus with ketoacidosis without coma (principal); N17.0 Acute kidney failure with tubular necrosis; F20.9 Schizophrenia, unspecified; F17.210 Nicotine dependence, cigarettes, uncomplicated; F15.90 Other stimulant use, unspecified, uncomplicated; Z79.4 Long term (current) use of insulin; Z91.199 Patient's noncompliance with other medical treatment and regimen due to unspecified reason; Z91.148 Patient's other noncompliance with medication regimen for other reason
CPT/HCPCS: 36415; 36600; 80048; 80053; 80307; 81001; 82010; 82805; 82962; 83036; 83930; 85025; 94640; 99291; G0378; J1815; J2405

== ENCOUNTER 2024-05-31 16:43 | Emergency (ER) | payer MEDICAID ==
[~2024-05-31] VITALS: Ht 175.3 cm; Wt 84.0 kg
[2024-05-31 16:52] VITALS: BP 122/73; PULSE 88; RESP 18; TEMP 98.6; O2SAT 99
--- NOTE | 2024-05-31 17:31 | ED.PDOC ---
History of Present Illness HPI Comments 33Y M with PMHx DM and schizophrenia presents to ED via EMS for chief complaint hyperglycemia. Per EMS, pt was in an argument with his mother and upon PD arrival, pt was throwing chairs. Once PD arrived on scene, pt let them know that his sugar was high and he needed to be transported to the hospital. Upon EMS arrival to scene, BS 397. Pt denies chest pain, SOB, dizziness, and n/v/d. Pt denies SI/HI. Pt states he is compliant with schizophrenia medications but is experiencing auditory hallucinations. Pt originally wanted to go to the crisis center but due to his elevated BS, was transported to ED. No other symptoms/history reported. Chief Complaint: Hyperglycemia Time Seen by MD: 17:20 Primary Care Provider: KATY Reviewed Notes: Nurses Notes, Higher Level Teaching Assistant Notes, Medications, Allergies Allergies: Coded Allergies: NO KNOWN ALLERGIES (Unverified , 06/03/22) Home Meds Active Scripts Phenylephrine-Shark Liver Oil- (Hemorrhoidal Suppositorie 0.25-3-85.5 %) 1 Sup Sup, 1 SUP [place] BIDP PRN, #20 SUPP Prov:SHREYAS BUCHANAN PAC 11/14/23 Ibuprofen Micronized (Ibuprofen) 800 Mg Tab, 800 MG PO Q8HP PRN, #30 TAB Prov:SHREYAS BUCHANAN PAC 06/03/22 Methocarbamol (Methocarbamol) 750 Mg Tab, 750 MG PO BID, #20 TAB Prov:FREDRICK PORRAS 04/24/21 Ibuprofen (Ibuprofen) 800 Mg Tab, 800 MG PO Q8HP PRN, #30 TAB Prov:FREDRICK PORRAS 04/24/21 Information Source: Patient, Emergency Med Personnel Mode of Arrival: EMS Severity: Moderate Timing: Hours Duration: Since onset Prehospital treatment: None Past Medical History PAST MEDICAL HISTORY: DM, Schizophrenia Surgical History: Denies all surgeries Family History Family History: Reviewed,noncontributory to illness Social History Smoker: Cigarettes Alcohol: Occasionally Drugs: Marijuana Lives In: Home Constitutional: denies: chills, diaphoresis, fatigue, fever, malaise, sweats, weakness, others EENTM: denies: blurred vision, double vision, ear bleeding, ear discharge, ear drainage, ear pain, ear ringing, eye pain, eye redness, hearing loss, mouth pain, mouth swelling, nasal discharge, nose bleeding, nose congestion, nose pain, photophobia, tearing, throat pain, throat swelling, voice changes, others Respiratory: denies: cough, hemoptysis, orthopnea, SOB at rest, shortness of breath, SOB with excertion, stridor, wheezing, others Cardiovascular: denies: chest pain, dizzy spells, diaphoresis, Dyspnea on exertion, edema, irregular heart beat, left arm pain, lightheadedness, palpitations, PND, syncope, others Gastrointestinal: denies: abdomen distended, abdominal pain, blood streaked bowels, constipated, diarrhea, dysphagia, difficulty swallowing, hematemesis, melena, nausea, poor appetite, poor fluid intake, rectal bleeding, rectal pain, vomiting, others Genitourinary: denies: burning, dysuria, flank pain, frequency, hematuria, incontinence, penile discharge, penile sore, pain, testicle pain, testicle swelling, urgency, others Neurological: denies: dizziness, fainting, headache, left sided numbness, left sided weakness, numbness, paresthesia, pre-existing deficit, right sided numbness, right sided weakness, seizure, speech problems, tingling, tremors, weakness, others Musculoskeletal: denies: back pain, gout, joint pain, joint swelling, muscle pain, muscle stiffness, neck pain, others Integumetry: denies: bruises, change in color, change in hair/nails, dryness, laceration, lesions, lumps, rash, wounds, others Allergic/Immunocompromised: denies: Difficulty Healing, Frequent Infections, Hives, Itching, others Hematologic/Lymphatic: denies: anemia, blood clots, easy bleeding, easy bruising, swollen glands, others Endocrine: denies: excessive hunger, excessive sweating, excessive thirst, excessive urination, flushing, intolerance to cold, intolerance to heat, unexplained weight gain, unexplained weight loss, others Psychiatric: reports: schizophrenia; denies: anxiety, bipolar disorder, depression, hopeless, panic disorder, sleepless, suicidal, others All Other Systems: Reviewed and Negative Physical Exam General Appearance: No Apparent Distress, Normal HEENT: Normal ENT Inspection, Pharynx Normal, TMs Normal Neck: Full Range of Motion, Non-Tender, Normal, Normal Inspection Respiratory: Chest Non-Tender, Lungs Clear, No Accessory Muscle Use, No Respiratory Distress, Normal Breath Sounds Cardiovascular: No Edema, No JVD, No Murmur, No Gallop, Normal Peripheral Pulses, Regular Rate/Rhythm Breast Exam: Deferred Gastrointestinal: No Organomegaly, Non Tender, No Pulsatile Mass, Normal Bowel Sounds, Soft Genitalia: Deferred Pelvic: Deferred Rectal: Deferred Extremities: No calf tenderness, Normal capillary refill, Normal inspection, Normal range of motion, Non-tender, No pedal edema Musculoskeletal : Apperance: Normal Neurologic: 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 Was a procedure done?: No Differential Dx Considerations may include: Hyperglycemia, psychosis, X-Ray, Labs, Meds, VS Vital Signs Date Time Temp Pulse Resp B/P (MAP) Pulse Ox O2 Delivery O2 Flow Rate FiO2 05/31/24 16:52 98.6 88 18 122/73 (89) 99 98.6 Lab Test 05/31/24 17:00 Range/Units Urine Color Light-yellow Yellow Urine Clarity Clear Clear Urine pH 5.5 5.0-9.0 Urine Specific [place] 1.038 H 1.001-1.035 Urine Protein Negative Negative Urine Ketones 1+ H Negative Urine Blood Negative Negative /uL Urine Nitrite Negative Negative Urine Bilirubin Negative Negative Urine Urobilinogen Normal Negative mg/dL Urine Leukocyte Esterase Negative Negative /uL Urine RBC <1 0 - 3 /hpf Urine Microscopic WBC < 1 0-3 /HPF Urine Squamous Epithelial Cells Few <5 /hpf Urine Bacteria None seen None Seen /hpf Urine Glucose 4+ H Normal mg/dL X-Ray, Labs, Meds, VS Comment Patient no answer for lab draws Patient no answer from scribed Patient was presumed eloped Time of 1ST Reevaluation: 17:50 Reevaluation 1ST: Unchanged Patient Education/Counseling: Diagnosis, Treatment Family Education/Counseling: No Family Present Departure 1 Departure Time of Disposition: 20:46 Impression: Primary Impression: Hyperglycemia Disposition: 07 LEFT AWOL/ELOPED Condition: Stable Critical Care Note Critical Care Time?: No Stability Stability form required: No Heart Score Heart Score: Heart Score Response (Comments) Value History N/A 0 EKG N/A 0 Age N/A 0 Risk Factors N/A 0 Troponin N/A 0 Total 0 I personally scribed for STAN HERNANDEZ ([email or web address]) on 05/31/24 at 17:31. Electronically submitted by Vikki Middleton ([email or web address]). STAN HERNANDEZ May 31, 2024 17:31
[2024-05-31 19:51] LABS: Urine Bacteria None Seen /hpf (None Seen)
[2024-05-31 20:41] LABS: Urine Blood Negative /uL (Negative); Urine Clarity Clear (Clear); Urine Color Light-Yellow (Yellow); Urine Protein, UAD Negative (Negative); Urine Specific Gravity 1.038 (1.001-1.035); Urine Squamous Epithelial Cell FEW /hpf (<5); Urine Urobilinogen Normal (Negative); Urine WBC < 1 /HPF (0-3); Urine pH 5.5 (5.0-9.0)
== END 2024-05-31 20:47 | disposition left against medical advice (07) ==
LOC: EDBD 16:43 → ER 16:43
DX: E11.65 Type 2 diabetes mellitus with hyperglycemia (principal); F12.90 Cannabis use, unspecified, uncomplicated; F17.210 Nicotine dependence, cigarettes, uncomplicated; F20.9 Schizophrenia, unspecified; Z79.899 Other long term (current) drug therapy
CPT/HCPCS: 81001; 82947